=== PATIENT | male | born 1975 | race African-American/Black ===

== ENCOUNTER 2020-04-22 21:15 | Emergency (ER) | payer SELFPAY ==
[~2020-04-22] VITALS: Ht 195.6 cm; Wt 106.6 kg
--- NOTE | 2020-04-22 21:30 | NUR ---
ED Nurse Note: pt presents to ED c/o abd px, N/V and constipation x 2 days. pt denies noticing blood, states he has not had a BM for 2 days, pt did not know that he had a fever, noted to have fever of 100.2 in triage. pt is noted to have O2 saturation WNL. states that he has been trying to take tylenol at home but has vomited up. 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
[2020-04-22 21:31] VITALS: BP 123/83
[2020-04-22] MEDS ORDERED: Fleet's Enema 133ml RECTAL ONE (21:45)
[2020-04-22] MEDS ORDERED: Metoclopramide 10mg/2ml Inj IVP ONE (21:45)
[2020-04-22] MEDS ORDERED: DiphenhydrAMINE 50mg/ml Inj IVP ONE (21:45)
[2020-04-22] MEDS ORDERED: Acetaminophen 500mg (ES) tab ORAL ONE (21:45)
[2020-04-22] MEDS ORDERED: Ketorolac 30mg Inj IV ONE (21:45)
[2020-04-22 22:25] LABS: BASOPHILS % (AUTO) 1.3 % (0.0-2.0); EOSINOPHILS % (AUTO) 0.1 % (0.0-3.0); HEMATOCRIT 50.6 % (42.0-52.0); HEMOGLOBIN 16.5 G/DL (14.2-18.0); MEAN CORPUSCULAR VOLUME 80 FL (80-99); MONOCYTES % (AUTO) 13.5 % (1.0-10.0); NEUTROPHILS % (AUTO) 55.2 % (45.0-75.0); PLATELET COUNT 229 K/UL (150-450); RED CELL DISTRIBUTION WIDTH 12.7 % (11.6-14.8); WHITE BLOOD COUNT 3.6 K/UL (4.8-10.8)
[2020-04-22 22:36] LABS: INR 1.1 (0.9-1.1)
[2020-04-22 22:37] LABS: ANION GAP 6 mmol/L (5-15); BLOOD UREA NITROGEN 10 mg/dL (7-18); CALCIUM 8.4 MG/DL (8.5-10.1); CARBON DIOXIDE 29 MMOL/L (21-32); CHLORIDE 96 MMOL/L (98-107); POTASSIUM 3.6 MMOL/L (3.5-5.1); SODIUM 131 MMOL/L (136-145)
--- NOTE | 2020-04-22 22:47 | Diagnostic Imaging Report ---
EXAM: XR Chest, 1 View CLINICAL HISTORY: ABD PAIN TECHNIQUE: Frontal view of the chest. COMPARISON: No relevant prior studies available. FINDINGS: Lungs: There are mild right greater than left basilar opacities. Pleural space: Unremarkable. No pneumothorax. Heart: Unremarkable. No cardiomegaly. Mediastinum: Unremarkable. Bones/joints: Unremarkable. Upper abdomen: Mild elevation of the left hemidiaphragm. IMPRESSION: Mild bibasilar opacities compatible with atelectasis. A superimposed infectious/process is possible.
--- NOTE | 2020-04-22 22:47 | Emergency Room Report ---
History of Present Illness General Chief Complaint: Abdominal Pain Source: Patient Present Illness HPI Patient presents with fever and abdominal pain which began on Friday. He has been self inducing vomiting and unable to move his bowels for 4 days. The vomiting is not helped the pain. In addition he is not vomiting any blood or coffee grounds. He is also having difficulty urinating. He has had fevers and chills today. He also has some muscle aches. 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 He has been using a mask. He tested negative for Covid 2 weeks ago. He denies any upper respiratory symptoms. There is no dyspnea on exertion, productive cough or chest pain. The patient rates the pain in his abdomen as a 9/10, constant and aching pressure but somewhat colicky. The patient was given a diagnosis of prediabetes. He denies polydipsia but feels his mouth is dry. He has had some increased urination. No sore throat, palpitations, dysuria, joint pain, rashes, depression, anxiety, visual changes, dizziness, headache. 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 Reviewed Nursing Documentation: PMH: Agreed; PSxH: Agreed Nursing Documentation-PMH Past Medical History: No History, Except For Review of Systems All Other Systems: negative except mentioned in HPI Physical Exam Vital Signs Date Time Temp Pulse Resp B/P (MAP) Pulse Ox O2 Delivery O2 Flow Rate FiO2 04/22/20 21:21 100.8 94 20 123/83 (96) 96 Room Air Sp02 EP Interpretation: reviewed, normal General Appearance: well appearing, no apparent distress, GCS 15, non-toxic Head: normocephalic, atraumatic Eyes: bilateral eye normal inspection, bilateral eye PERRL, bilateral eye EOMI ENT: normal pharynx, dry mucus membranes Neck: full range of motion, supple, no meningismus Respiratory: chest non-tender, lungs clear, normal breath sounds Cardiovascular #1: regular rate, rhythm, no edema Cardiovascular #2: 2+ radial (L) Gastrointestinal: normal inspection, normal bowel sounds, no mass, non- distended, no guarding, no rebound, tenderness - Reported tenderness diffusely and periumbilical, overweight Genitourinary: no CVA tenderness Musculoskeletal: back normal, normal range of motion, no calf tenderness, gait/station normal Neurologic: alert, oriented x3, grossly normal Psychiatric: mood/affect normal Skin: no rash, warm/dry Medical Decision Making Diagnostic Impression: Primary Impression: Lab test positive for detection of COVID-19 virus Additional Impressions: Hyperglycemia Abdominal pain Qualified Codes: R10.32 - Left lower quadrant pain Constipation Qualified Codes: K59.00 - Constipation, unspecified Dehydration ER Course Prediabetic patient presents with low-grade fever, abdominal pain and inability to move his bowels. Differential includes diabetic ketoacidosis, constipation, COVID-19, dehydration, other viral syndrome amongst others. Evaluation with EKG, chest x-ray and labs. Treatment with IV hydration, Reglan, Benadryl, Tylenol and Toradol. Repeat exams indicated. Consideration of CT scan if elevated white count and if exam worsens. The patient will receive an enema. EKG without injury. Chest x-ray atelectasis right base no infiltrates. White count normal. Elevated blood sugar. Normal lactate and troponin. Elevated C- reactive protein and LDH. Covid positive. Repeat exam with soft abdomen. Pain is improved. Still no stool and urine appears clear. Lactulose administered and plain film of the abdomen ordered. Repeat Accu-Chek after first bolus still high at 277 (essentially unchanged from peripheral blood glucose). Urinalysis clear. Discussed findings with patient. Repeat bolus administered. Discussion of possible treatment with Metformin. Discussed treatment plan and quarantine precautions. Repeat Accu-Chek improved. Patient stable for outpatient observation and treatment. Laboratory Tests Test 04/22/20 21:45 04/22/20 23:35 White Blood Count 3.6 K/UL (4.8-10.8) L Red Blood Count 6.30 M/UL (4.70-6.10) H Hemoglobin 16.5 G/DL (14.2-18.0) Hematocrit 50.6 % (42.0-52.0) Mean Corpuscular Volume 80 FL (80-99) Mean Corpuscular Hemoglobin 26.1 PG (27.0-31.0) L Mean Corpuscular Hemoglobin Concent 32.5 G/DL (32.0-36.0) Red Cell Distribution Width 12.7 % (11.6-14.8) Platelet Count 229 K/UL (150-450) Mean Platelet Volume 6.5 FL (6.5-10.1) Neutrophils (%) (Auto) 55.2 % (45.0-75.0) Lymphocytes (%) (Auto) 30.0 % (20.0-45.0) Monocytes (%) (Auto) 13.5 % (1.0-10.0) H Eosinophils (%) (Auto) 0.1 % (0.0-3.0) Basophils (%) (Auto) 1.3 % (0.0-2.0) Prothrombin Time 11.6 SEC (9.30-11.50) H Prothrombin Time INR 1.1 (0.9-1.1) Activated Partial Thromboplast Time 33 SEC (23-33) Sodium Level 131 MMOL/L (136-145) L Potassium Level 3.6 MMOL/L (3.5-5.1) Chloride Level 96 MMOL/L (98-107) L Carbon Dioxide Level 29 MMOL/L (21-32) Anion Gap 6 mmol/L (5-15) Blood Urea Nitrogen 10 mg/dL (7-18) Creatinine 1.0 MG/DL (0.55-1.30) Estimated Glomerular Filtration Rate > 60 mL/min (>60) Glucose Level 214 MG/DL (74-106) H Lactic Acid Level 1.50 mmol/L (0.4-2.0) Calcium Level 8.4 MG/DL (8.5-10.1) L Magnesium Level 2.0 MG/DL (1.8-2.4) Ferritin 716 NG/ML (8-388) H Total Bilirubin 0.5 MG/DL (0.2-1.0) Aspartate Amino Transferase (AST) 34 U/L (15-37) Alanine Aminotransferase (ALT) 25 U/L (12-78) Alkaline Phosphatase 83 U/L (46-116) Lactate Dehydrogenase 242 U/L (81-234) H Total Creatine Kinase 480 U/L (26-308) H Troponin I 0.000 ng/mL (0.000-0.056) C-Reactive Protein, Quantitative 4.3 mg/dL (0.00-0.90) H Pro-B-Type Natriuretic Peptide 10 pg/mL (0-125) Total Protein 7.6 G/DL (6.4-8.2) Albumin 3.5 G/DL (3.4-5.0) Globulin 4.1 g/dL Albumin/Globulin Ratio 0.9 (1.0-2.7) L Lipase 59 U/L (73-393) L Urine Color Pale yellow Urine Appearance Clear Urine pH 7 (4.5-8.0) Urine Specific [place] 1.005 (1.005-1.035) Urine Protein Negative (NEGATIVE) Urine Glucose (UA) 4+ (NEGATIVE) H Urine Ketones 2+ (NEGATIVE) H Urine Blood Negative (NEGATIVE) Urine Nitrite Negative (NEGATIVE) Urine Bilirubin Negative (NEGATIVE) Urine Urobilinogen 4 MG/DL (0.0-1.0) H Urine Leukocyte Esterase Negative (NEGATIVE) Microbiology Date/Time Source Procedure Growth Status 04/22/20 21:45 Nasopharynx SARS-CoV-2 RdRp Gene Assay - Final Complete EKG Diagnostic Results Rate: normal Rhythm: NSR ST Segments: no acute changes Rhythm Strip Diag. Results EP Interpretation: yes Rhythm: NSR, no PVC's, no ectopy Chest X-Ray Diagnostic Results Chest X-Ray Diagnostic Results : Chest X-Ray Ordered: Yes # of Views/Limited/Complete: 1 View Indication: Other EP Interpretation: Yes Interpretation: no effusion, no pneumothorax, other - atelectasis L base Impression: Other Electronically Signed by: Electronically signed by Uzair Sanchez MD Other X-Ray Diagnostic Results Other X-Ray Diagnostic Results : X-Ray ordered: abd # of Views/Limited Vs Complete: 2 View Indication: Pain EP Interpretation: Yes Interpretation: nonspecific bowel gas, no sbo, other - No masses or unusual calcifications Impression: No acute disease Electronically Signed by: Electronically signed by Uzair Sanchez MD Last Vital Signs Date Time Temp Pulse Resp B/P (MAP) Pulse Ox O2 Delivery O2 Flow Rate FiO2 04/23/20 00:45 99.2 90 20 131/85 98 Room Air Status: improved Disposition: HOME, SELF-CARE Condition: Improved Scripts Ibuprofen* (MOTRIN*) 600 Mg Tablet 600 MG ORAL Q6H PRN for FOR PAIN, #20 TAB 0 Refills Prov: Uzair Sanchez MD 04/22/20 Lactulose (LACTULOSE*) 20 Gm/30 Ml Solution 30 ML ORAL BID, #240 ML 0 Refills Prov: Uzair Sanchez MD 04/22/20 Referrals: NOT CHOSEN [facility]/,REFERRING (PCP) Uzair Sanchez MD Apr 22, 2020 22:47
[2020-04-22 22:55] LABS: ALANINE AMINOTRANSFERASE 25 U/L (12-78); ALBUMIN 3.5 G/DL (3.4-5.0); ALBUMIN/GLOBULIN RATIO 0.9 (1.0-2.7); ALKALINE PHOSPHATASE 83 U/L (46-116); ASPARTATE AMINO TRANSFERASE 34 U/L (15-37); BILIRUBIN,TOTAL 0.5 MG/DL (0.2-1.0); CREATINE KINASE 480 U/L (26-308); FERRITIN 716 NG/ML (8-388); LACTATE DEHYDROGENASE 242 U/L (81-234)
[2020-04-22] MEDS ORDERED: Lactulose 20gm/30ml UDC ORAL ONE (23:00)
--- NOTE | 2020-04-22 23:35 | NUR ---
ED Nurse Note: xr at bedside. urine collected and sent to lab
[2020-04-22 23:49] LABS: APPEARANCE,URINE CLEAR; BILIRUBIN, URINE NEGATIVE (NEGATIVE); GLUCOSE, URINE (UA) 4+ (NEGATIVE); KETONES,URINE 2+ (NEGATIVE); LEUKOCYTE ESTERASE ,URINE NEGATIVE (NEGATIVE); NITRITE,URINE NEGATIVE (NEGATIVE); PH,URINE 7 (4.5-8.0); PROTEIN,URINE NEGATIVE (NEGATIVE); UROBILINOGEN,URINE 4 MG/DL (0.0-1.0)
[2020-04-22] MEDS ORDERED: IBUPROFEN600 M1 ORAL (23:49)
[2020-04-22] MEDS ORDERED: LACTULOSE20 GM/301 ORAL (23:49)
[2020-04-22 23:50] LABS: COLOR,URINE PALE YELLOW
[2020-04-22] MEDS ORDERED: NITROFURANTOIN100 M2 ORAL (23:53)
--- NOTE | 2020-04-23 00:12 | Diagnostic Imaging Report ---
EXAM: XR Abdomen, 2 Views CLINICAL HISTORY: ABD PAIN TECHNIQUE: Frontal view of the abdomen/pelvis with upright view of the abdomen. COMPARISON: No relevant prior studies available. FINDINGS: Intraperitoneal space: No free air. Gastrointestinal tract: Unremarkable. No dilation. Bones/joints: Unremarkable. IMPRESSION: No acute findings.
[2020-04-23 00:45] VITALS: BP 131/85
--- NOTE | 2020-04-23 00:45 | NUR ---
ER DISCHARGE NOTE: Patient is cleared to be discharged per ERMD, pt is aox4, on room air, with stable vital signs. pt was given dc and prescription instructions, pt was able to verbalize understanding, pt id band and iv site removed without complications. pt is able to ambulate with steady gait. pt took all belongings.
[2020-04-23] MEDS ORDERED: LACTULOSE20 GM/301 ORAL (15:11)
[2020-04-23] MEDS ORDERED: IBUPROFEN600 M1 ORAL (15:11)
--- NOTE | 2020-04-23 20:35 | Cardiology Report ---
APPROVED REPORT EKG Measurement Heart [id number] <Conclusion> Normal sinus rhythm Cannot rule out Anteroseptal infarct, age undetermined Abnormal ECG
== END 2020-04-23 00:45 | disposition home or self-care (01) ==
LOC: EDSEX 21:15 → EMR 21:38
DX: U07.1 COVID-19 (principal); R10.32 Left lower quadrant pain; K59.00 Constipation, unspecified; E86.0 Dehydration; R73.9 Hyperglycemia, unspecified; R73.03 Prediabetes; R39.15 Urgency of urination; E66.3 Overweight; Z68.27 Body mass index [BMI] 27.0-27.9, adult
CPT/HCPCS: 36415; 71045; 74018; 80053; 81003; 82550; 82728; 83605; 83615; 83690; 83735; 83880; 84484; 85025; 85610; 85730; 86140; 93005; 96361; 96374; 96375; 99284; J1200; J1885; J2765; J7030; U0002

== ENCOUNTER 2020-04-26 15:13 | Emergency (ER) | payer OTHER ==
[~2020-04-26] VITALS: Ht 190.5 cm; Wt 99.8 kg
[~2020-04-26 15:13] MED LIST: IBUPROFEN600 M1 ORAL; LACTULOSE20 GM/301 ORAL; NITROFURANTOIN100 M2 ORAL
[2020-04-26 15:40] VITALS: BP 132/75
[2020-04-26] MEDS ORDERED: Omnipaque-300 100ml vial INJ PRN (15:45)
[2020-04-26] MEDS ORDERED: Fleet's Mineral Oil Enema RECTAL ONE (15:45)
--- NOTE | 2020-04-26 16:05 | NUR ---
ED Nurse Note: per ed PA, give enema after pt returns from CT. Pt started drinking contrast
--- NOTE | 2020-04-26 16:17 | NUR ---
ED Nurse Note: blood sent to lab
[2020-04-26] MEDS ORDERED: Acetaminophen 500mg (ES) tab ORAL ONE (16:30)
[2020-04-26 16:44] LABS: BASOPHILS % (AUTO) 0.7 % (0.0-2.0); HEMATOCRIT 50.9 % (42.0-52.0); HEMOGLOBIN 16.6 G/DL (14.2-18.0); LYMPHOCYTES % (AUTO) 14.4 % (20.0-45.0); MEAN CORPUSCULAR VOLUME 80 FL (80-99); MONOCYTES % (AUTO) 13.7 % (1.0-10.0); NEUTROPHILS % (AUTO) 71.2 % (45.0-75.0); PLATELET COUNT 258 K/UL (150-450); RED BLOOD COUNT 6.38 M/UL (4.70-6.10); RED CELL DISTRIBUTION WIDTH 12.3 % (11.6-14.8); WHITE BLOOD COUNT 3.9 K/UL (4.8-10.8)
[2020-04-26 16:57] LABS: INR 1.1 (0.9-1.1)
[2020-04-26 17:04] LABS: ANION GAP 11 mmol/L (5-15); BLOOD UREA NITROGEN 13 mg/dL (7-18); CALCIUM 8.4 MG/DL (8.5-10.1); CARBON DIOXIDE 25 MMOL/L (21-32); CHLORIDE 92 MMOL/L (98-107); CREATININE 1.1 MG/DL (0.55-1.30); POTASSIUM 3.9 MMOL/L (3.5-5.1); SODIUM 128 MMOL/L (136-145)
[2020-04-26 17:09] LABS: ALANINE AMINOTRANSFERASE 36 U/L (12-78); ALBUMIN 3.3 G/DL (3.4-5.0); ALBUMIN/GLOBULIN RATIO 0.7 (1.0-2.7); ALKALINE PHOSPHATASE 105 U/L (46-116); ASPARTATE AMINO TRANSFERASE 71 U/L (15-37); BILIRUBIN,TOTAL 0.8 MG/DL (0.2-1.0)
[2020-04-26 17:48] VITALS: BP 128/80
--- NOTE | 2020-04-26 18:10 | Diagnostic Imaging Report ---
EXAM: CT Abdomen and Pelvis With Intravenous Contrast CLINICAL HISTORY: Abdominal pain. TECHNIQUE: Axial computed tomography images of the abdomen and pelvis with intravenous contrast. CTDI is 10.4 mGy and DLP is 613.7 mGy-cm. One or more of the following dose reduction techniques were used: automated exposure control, adjustment of the mA and/or kV according to patient size, use of iterative reconstruction technique. COMPARISON: 04/22/2020. FINDINGS: Lung bases: Evaluation of the lung bases reveals confluent patchy airspace disease most compatible with Covid-19 pneumonia. A 0.5 cm noncalcified nodule is noted within the right middle lobe best seen on series [address] imaging of the chest a short-term follow- up imaging are advised. Pleural space: Small bilateral pleural effusions. Heart: Heart is normal in size. Mediastinum: Small hiatal hernia and probable distal esophagitis. ABDOMEN: Liver: Diffuse fatty infiltration of the liver is noted with fatty sparing about the round ligament. The liver and the spleen enhance uniformly. Gallbladder and bile ducts: See below. Pancreas: See below. Spleen: See above. Adrenals: The adrenal glands, the head, body, tail of the pancreas, and the gallbladder are unremarkable. Kidneys and ureters: There is nonspecific stranding about the perinephric spaces bilaterally without hydronephrosis. Stomach and bowel: The stomach is underdistended. Moderate quantity of stool throughout the colon. No evidence of bowel obstruction. Diverticulosis without diverticulitis. PELVIS: Appendix: The appendix is seen on axial image 66 and is unremarkable. Bladder: The bladder is underdistended. Reproductive: Prostate gland is unremarkable per ABDOMEN and PELVIS: Intraperitoneal space: Unremarkable. No free air. No significant fluid collection. Bones/joints: Degenerative disc disease of the lumbar spine most notably at L5-S1 level. Sacrum and coccyx are unremarkable. No spondylolysis or spondylolisthesis. No acute fracture. No dislocation. Soft tissues: 2.9 cm umbilical hernia is noted containing mesenteric fat. Within the umbilical hernia, stranding is noted within the mesenteric fat. Early strangulation or incarceration cannot be excluded and clinical correlation is advised. Ischiorectal fat is clean. Vasculature: Flow is demonstrated within the celiac, SMA, the renal arteries, and JONO. No abdominal aortic aneurysm. Lymph nodes: No retroperitoneal lymphadenopathy. No pelvic or inguinal lymphadenopathy. Other findings: Elevation of the left hemidiaphragm. IMPRESSION: 1. Findings suggestive of Covid-19 pneumonia at the lung bases. 2. Noncalcified lung nodule right middle lobe which requires follow-up. 3. Small bilateral pleural effusions. 4. Diffuse fatty infiltration of the liver. 5. Gallbladder is unremarkable. 6. Nonspecific stranding about the perinephric spaces. 7. Umbilical hernia containing mesenteric fat only. 8. Stranding within the mesenteric fat is noted worrisome for early strangulation or incarceration. 9. Appendix is unremarkable. 10. Moderate quantity of stool throughout the colon. 11. No bowel obstruction.
[2020-04-26 18:14] LABS: APPEARANCE,URINE SLIGHTLY CLOUDY; BILIRUBIN, URINE NEGATIVE (NEGATIVE); GLUCOSE, URINE (UA) 4+ (NEGATIVE); KETONES,URINE 4+ (NEGATIVE); LEUKOCYTE ESTERASE ,URINE NEGATIVE (NEGATIVE); NITRITE,URINE NEGATIVE (NEGATIVE); PH,URINE 5 (4.5-8.0); PROTEIN,URINE 2+ (NEGATIVE); UROBILINOGEN,URINE 1 MG/DL (0.0-1.0)
[2020-04-26 18:15] LABS: COLOR,URINE YELLOW
--- NOTE | 2020-04-26 18:31 | Emergency Room Report ---
History of Present Illness General Chief Complaint: Constipation Source: Patient (Severino Castro) Present Illness HPI 44-year-old male who was recently seen at [facility] for constipation and was also diagnosed with COVID-19 here complaining of worsening abdominal pain and constipation. Patient was given prescription for lactulose however reported it did not help and denies any blood in stool. Denies fever and chills, however complains of multiple bouts of nonbloody emesis. Denies chest pain, shortness of breath, headache and dizziness. Patient reports her last bowel movement was this morning and it was very little. Denies taking any blood thinners. (Severino Castro) Allergies: Coded Allergies: No Known Allergies (Unverified , 04/22/20) COVID-19 Screening Contact w/high risk pt: No Experienced COVID-19 symptoms?: No COVID-19 Testing performed [employer]: No COVID-19 Screening: Positive COVID-19 COVID-19 Testing Source: [facility] (Severino Castro) Patient History Past Medical History: see triage record Past Surgical History: none Pertinent Family History: none Immunizations: UTD Reviewed Nursing Documentation: PMH: Agreed; PSxH: Agreed (Severino Castro) Nursing Documentation-PMH Past Medical History: No History, Except For (Severino Castro) Review of Systems All Other Systems: negative except mentioned in HPI (Severino Castro) Physical Exam Vital Signs Date Time Temp Pulse Resp B/P (MAP) Pulse Ox O2 Delivery O2 Flow Rate FiO2 04/26/20 15:30 98.2 88 15 130/72 (91) 98 Room Air Sp02 EP Interpretation: reviewed, normal General Appearance: no apparent distress, alert, GCS 15, non-toxic Head: normocephalic, atraumatic Eyes: bilateral eye normal inspection, bilateral eye PERRL ENT: hearing grossly normal, normal pharynx, no angioedema, normal voice Neck: full range of motion, supple/symm/no masses Respiratory: chest non-tender, lungs clear, normal breath sounds, speaking full sentences Cardiovascular #1: regular rate, rhythm, no edema Cardiovascular #2: 2+ carotid (R), 2+ carotid (L), 2+ radial (R), 2+ radial (L), 2+ dorsalis pedis (R), 2+ dorsalis pedis (L) Gastrointestinal: no organomegaly, no peritonitis, non-distended, no guarding Rectal: deferred Musculoskeletal: back normal Neurologic: alert, motor strength/tone normal, oriented x3, sensory intact, responsive, speech normal Psychiatric: judgement/insight normal, memory normal, mood/affect normal, no suicidal/homicidal ideation Skin: no rash Lymphatic: no adenopathy (Severino Castro) Medical Decision Making PA Attestation All diagnoses and treatment plans were reviewed and discussed with my supervising physician Dr. Sanchez (Severino Castro) Diagnostic Impression: Primary Impression: Hyponatremia Additional Impressions: Hyperglycemia Pneumonia due to COVID-19 virus Abdominal hernia Qualified Codes: K42.9 - Umbilical hernia without obstruction or gangrene ER Course 44-year-old male who was recently seen at [facility] for constipation and was also diagnosed with COVID-19 here complaining of worsening abdominal pain and constipation. Patient was given prescription for lactulose however reported it did not help and denies any blood in stool. Denies fever and chills, however complains of multiple bouts of nonbloody emesis. Denies chest pain, shortness of breath, headache and dizziness. Patient reports her last bowel movement was this morning and it was very little. Denies taking any blood thinners. Ddx considered but are not limited to: appendicitis, cholecystis, gastritis, gastroenteritis, UTI, pyelonephritis, SBO, diverticulitis, influenza with GI manifestation, DE, complication with Pancreatitis, incarcerated hernia Vital signs: are WNL, pt. is afebrile H&PE are most consistent with: Hyponatremia, hyperglycemia ,Covid pneumonia, abdominal wall hernia ORDERS: Abdominal pain order set, ER sepsis order set, abdominal CT with oral and IV contrast ED INTERVENTIONS: Tylenol, NS bolus Patient was transferred for admission with diagnosis of hyponatremia, hyper glycemia, Covid pneumonia to [facility] under supervision of : Tyler odss pt stable at time of admission (Severino Castro) ER Course Please see above note. Patient is well-known to me from my prior evaluation. The patient tested positive for COVID-19 on April 22. He was also hyperglycemic at that time. He has not done well at home and has nausea and occasional vomiting. He still has not moved his bowels although he is passed a scant amount of stool. The medication that I prescribed for him as caused him to be nauseated not eating well. He still complains about pain in his mid abdomen that 6/10 and is not helped by the Motrin that I prescribed also. Please see labs and CT scan. Patient without umbilical tenderness. Discussed with Dr. Kenny who accepts the patient that [facility]. (Uzair Sanchez MD) CT/MRI/US Diagnostic Results CT/MRI/US Diagnostic Results : Imaging Test Ordered: CT abdomen pelvis with oral and IV contrast Impression FINDINGS: Lung bases: Evaluation of the lung bases reveals confluent patchy airspace disease most compatible with Covid-19 pneumonia. A 0.5 cm noncalcified nodule is noted within the right middle lobe best seen on series [address] imaging of the chest a short-term follow-up imaging are advised. Pleural space: Small bilateral pleural effusions. Heart: Heart is normal in size. Mediastinum: Small hiatal hernia and probable distal esophagitis. ABDOMEN: Liver: Diffuse fatty infiltration of the liver is noted with fatty sparing about the round ligament. The liver and the spleen enhance uniformly. Gallbladder and bile ducts: See below. Pancreas: See below. Spleen: See above. Adrenals: The adrenal glands, the head, body, tail of the pancreas, and the gallbladder are unremarkable. Kidneys and ureters: There is nonspecific stranding about the perinephric spaces bilaterally without hydronephrosis. Stomach and bowel: The stomach is underdistended. Moderate quantity of stool throughout the colon. No evidence of bowel obstruction. Diverticulosis without diverticulitis. PELVIS: Appendix: The appendix is seen on axial image 66 and is unremarkable. Bladder: The bladder is underdistended. Reproductive: Prostate gland is unremarkable per ABDOMEN and PELVIS: Intraperitoneal space: Unremarkable. No free air. No significant fluid collection. Bones/joints: Degenerative disc disease of the lumbar spine most notably at L5- S1 level. Sacrum and coccyx are unremarkable. No spondylolysis or spondylolisthesis. No acute fracture. No dislocation. Soft tissues: 2.9 cm umbilical hernia is noted containing mesenteric fat. Within the umbilical hernia, stranding is noted within the mesenteric fat. Early strangulation or incarceration cannot be excluded and clinical correlation is advised. Ischiorectal fat is clean. Vasculature: Flow is demonstrated within the celiac, SMA, the renal arteries, and JONO. No abdominal aortic aneurysm. Lymph nodes: No retroperitoneal lymphadenopathy. No pelvic or inguinal lymphadenopathy. Other findings: Elevation of the left hemidiaphragm. IMPRESSION: 1. Findings suggestive of Covid-19 pneumonia at the lung bases. 2. Noncalcified lung nodule right middle lobe which requires follow-up. 3. Small bilateral pleural effusions. 4. Diffuse fatty infiltration of the liver. 5. Gallbladder is unremarkable. 6. Nonspecific stranding about the perinephric spaces. 7. Umbilical hernia containing mesenteric fat only. 8. Stranding within the mesenteric fat is noted worrisome for early strangulation or incarceration. 9. Appendix is unremarkable. 10. Moderate quantity of stool throughout the colon. 11. No bowel obstruction. (Severino Castro) Last Vital Signs Date Time Temp Pulse Resp B/P (MAP) Pulse Ox O2 Delivery O2 Flow Rate FiO2 04/26/20 17:48 99.1 90 18 128/80 98 Room Air (Severino Castro) Last Vital Signs Date Time Temp Pulse Resp B/P (MAP) Pulse Ox O2 Delivery O2 Flow Rate FiO2 04/26/20 22:00 99.1 95 20 132/81 99 Room Air Status: improved (Uzair Sanchez MD) Disposition: SHORT-TERM HOSP Condition: Serious Referrals: KAVON VU,REFERRING (PCP) Severino Castro Apr 26, 2020 18:31 Uzair Sanchez MD Apr 26, 2020 18:33
--- NOTE | 2020-04-26 18:33 | NUR ---
ED Nurse Note: per ED MD, d/c order for enema. order noted and carried out.
[2020-04-26] MEDS ORDERED: Ketorolac 30mg Inj IV ONE (18:45)
--- NOTE | 2020-04-26 19:44 | NUR ---
Spoke with Cass DEVINE, will have Uzair Raymond call us back for posible transfer to [facility].
[2020-04-26 20:00] VITALS: BP 132/81
--- NOTE | 2020-04-26 20:42 | NUR ---
ED Nurse Note: report given to Lilia Nursing preparation supervisor freezing at [facility]
--- NOTE | 2020-04-26 21:52 | NUR ---
ED Nurse Note: [facility] here to transfer pt to [facility]
[2020-04-26 22:00] VITALS: BP 132/81
== END 2020-04-26 22:00 | disposition short-term general hospital (02) ==
LOC: EMR 15:51
DX: K42.9 Umbilical hernia without obstruction or gangrene (principal); E87.1 Hypo-osmolality and hyponatremia; R73.9 Hyperglycemia, unspecified; U07.1 COVID-19; J12.89 Other viral pneumonia; K44.9 Diaphragmatic hernia without obstruction or gangrene; J90 Pleural effusion, not elsewhere classified; K76.0 Fatty (change of) liver, not elsewhere classified; K57.90 Diverticulosis of intestine, part unspecified, without perforation or abscess without bleeding; M51.36 Other intervertebral disc degeneration, lumbar region; R91.1 Solitary pulmonary nodule
CPT/HCPCS: 36415; 74177; 80053; 81003; 82728; 83615; 83690; 83735; 84484; 85025; 85379; 85610; 85730; 86140; 96361; 96374; 96375; J1885; J2405; J7030; Q9965; Z7502; 99284